=== PATIENT | female | born 1965 | race Caucasian/White ===

== ENCOUNTER 2016-11-24 07:12 | Day surgery (SDC) | payer OTHER ==
[~2016-11-24 07:12] MED LIST: CIPRO250 MG PO; LOPRESSOR100 MG PO; MECLIZINE25 M2 PO; PROAMATINE5 MG PO
== END 2016-11-24 08:55 | disposition home or self-care (01) ==
LOC: MDS 07:12 → MMU 07:24 → MDS 08:55
PROVIDERS: ATTEND Internal Medicine Gastroenterology
DX: R18.8 Other ascites (principal); I12.9 Hypertensive chronic kidney disease with stage 1 through stage 4 chronic kidney disease, or unspecified chronic kidney disease; N18.9 Chronic kidney disease, unspecified; E78.5 Hyperlipidemia, unspecified; E11.22 Type 2 diabetes mellitus with diabetic chronic kidney disease; N19 Unspecified kidney failure; Z99.2 Dependence on renal dialysis; M19.90 Unspecified osteoarthritis, unspecified site
CPT/HCPCS: 49083; 76705; Q0092

== ENCOUNTER 2016-12-30 06:59 | Day surgery (SDC) | payer OTHER ==
[~2016-12-30] VITALS: Ht 162.6 cm; Wt 81.2 kg
[2016-12-30] MEDS ORDERED: INSULIN LISPRO 100 UNITS/ML VIAL SUBQ SCH (08:00)
[2016-12-30] MEDS ORDERED: RENVELA800 MG PO (08:02)
[2016-12-30] MEDS ORDERED: GOOD SENSE OMEP20 MG PO (08:34)
[2016-12-30] MEDS ORDERED: PHOSLO667 M1 PO (08:35)
[2016-12-30] MEDS ORDERED: TOPROL XL100 MG PO (08:36)
[2016-12-30] MEDS ORDERED: PROCARDIA XL60 MG PO (08:37)
[2016-12-30] MEDS ORDERED: NEPHRO-VITE VIT1 TAB PO (08:38)
[2016-12-30] MEDS ORDERED: HUMALOG MI100 UNITS/ SUBQ (08:39)
[2016-12-30] MEDS ORDERED: TRANDATE200 M1 PO (08:39)
== END 2016-12-30 09:00 | disposition home or self-care (01) ==
LOC: MDS 06:59 → MMU 07:02 → MDS 09:00
PROVIDERS: ATTEND Internal Medicine Gastroenterology
DX: R18.8 Other ascites (principal); I12.9 Hypertensive chronic kidney disease with stage 1 through stage 4 chronic kidney disease, or unspecified chronic kidney disease; E11.22 Type 2 diabetes mellitus with diabetic chronic kidney disease; N18.4 Chronic kidney disease, stage 4 (severe); Z99.2 Dependence on renal dialysis; M19.90 Unspecified osteoarthritis, unspecified site; E78.5 Hyperlipidemia, unspecified; I63.9 Cerebral infarction, unspecified; E66.3 Overweight
CPT/HCPCS: 49083; 82948; J2001

== ENCOUNTER 2017-02-03 06:29 | Day surgery (SDC) | payer OTHER ==
[~2017-02-03] VITALS: Ht 160 cm; Wt 83.9 kg
[~2017-02-03 06:29] MED LIST changes: -CIPRO250 MG PO; +HUM7525 SUBQ; -LOPRESSOR100 MG PO; -MECLIZINE25 M2 PO; +METO100T14 PO; +NIFE60TE5 PO; +OMEP20TC24 PO; +PHO667 PO; -PROAMATINE5 MG PO; +SEVE800T6 PO; +TRA200 PO; +VITA1TAB44 PO
[2017-02-03] MEDS ORDERED: INSULIN LISPRO 100 UNITS/ML VIAL SUBQ SCH (07:20)
[2017-02-03] MEDS ORDERED: INSULIN NPH HUM/REG INSULIN HM 100 UNIT/ML 10 ML VIAL SQ ONE (07:20)
== END 2017-02-03 08:30 | disposition home or self-care (01) ==
LOC: MDS 06:29 → MMU 06:51 → MDS 08:30
PROVIDERS: ATTEND Internal Medicine Gastroenterology
DX: R18.8 Other ascites (principal); I12.9 Hypertensive chronic kidney disease with stage 1 through stage 4 chronic kidney disease, or unspecified chronic kidney disease; E11.22 Type 2 diabetes mellitus with diabetic chronic kidney disease; N18.4 Chronic kidney disease, stage 4 (severe); E78.5 Hyperlipidemia, unspecified; I63.9 Cerebral infarction, unspecified; M19.90 Unspecified osteoarthritis, unspecified site; Z99.2 Dependence on renal dialysis
CPT/HCPCS: 49083; 82948; J1815

== ENCOUNTER 2017-04-04 06:20 | Day surgery (SDC) | payer OTHER ==
[~2017-04-04] VITALS: Ht 162.6 cm; Wt 89.8 kg
[2017-04-04] MEDS ORDERED: INSULIN HUMAN REGULAR 100 UNITS/ML 10 ML VIAL SUBQ SCH (09:18)
== END 2017-04-04 09:55 | disposition home or self-care (01) ==
LOC: MDS 06:20 → MMU 06:28 → MDS 09:55
PROVIDERS: ATTEND Internal Medicine Gastroenterology
DX: R18.8 Other ascites (principal); R06.02 Shortness of breath; Z87.891 Personal history of nicotine dependence; Z79.899 Other long term (current) drug therapy; E66.09 Other obesity due to excess calories; Z68.36 Body mass index [BMI] 36.0-36.9, adult
CPT/HCPCS: 49083; 76705; 82948; J1815; Q0092

== ENCOUNTER 2017-05-02 05:58 | Day surgery (SDC) | payer OTHER ==
[~2017-05-02] VITALS: Ht 162.6 cm; Wt 89.8 kg
[2017-05-02] MEDS ORDERED: INSULIN HUMAN REGULAR 100 UNITS/ML 10 ML VIAL SUBQ ONE (07:50)
[2017-05-02] MEDS ORDERED: INSULIN HUMAN REGULAR 100 UNITS/ML 10 ML VIAL SUBQ SCH (08:36)
== END 2017-05-02 09:20 | disposition home or self-care (01) ==
LOC: MDS 05:58 → MMU 05:59 → MDS 09:20
PROVIDERS: ATTEND Internal Medicine Gastroenterology
DX: Z53.8 Procedure and treatment not carried out for other reasons (principal)
CPT/HCPCS: 49083; 76705; 82948; Q0092

== ENCOUNTER 2017-06-06 06:20 | Day surgery (SDC) | payer OTHER ==
[~2017-06-06] VITALS: Ht 124.5 cm; Wt 89.0 kg
[2017-06-06] MEDS ORDERED: INSULIN HUMAN REGULAR 100 UNITS/ML 10 ML VIAL SUBQ ONE (08:45)
[2017-06-06] MEDS ORDERED: INSULIN LISPRO 100 UNITS/ML VIAL SUBQ SCH (09:09)
== END 2017-06-06 09:00 | disposition home or self-care (01) ==
LOC: MDS 06:20 → MMU 06:23 → MDS 09:00
PROVIDERS: ATTEND Internal Medicine Gastroenterology
DX: R18.8 Other ascites (principal); E11.9 Type 2 diabetes mellitus without complications
CPT/HCPCS: 49083; 76705; 82948; Q0092; J1815